=== PATIENT | male | born 1980 ===

== ENCOUNTER 2018-03-28 18:14 | Emergency (ER) | payer SELFPAY ==
[2018-03-28] MEDS ORDERED: Iohexol 240 (50 ml) PO STA (19:26)
--- NOTE | 2018-03-28 19:28 | C.PDOC ---
History Of Present Illness 37 year old male presents to the ED for evaluation of left inguinal bulging for the past 2 days. Patient reports he works in a [employer] 11 hours a day does not remember any straining or injury. Patient reports that when standing for long periods of time and lifting heavy objects he feels the bulge get larger and pain increases. Patient states now pain is radiating to his left flank and down his left leg. Patient states no change in bowel or urinary habits. Patient reports he had right inguinal hernia repair 20 years ago. Patient denies fever, chills, nausea, vomit, diarrhea, dysuria, hematuria, back pain, weakness, numbness. Time Seen by Provider: 03/28/18 19:18 Chief Complaint (Nursing): Groin Pain History Per: Patient History/Exam Limitations: no limitations Onset/Duration Of Symptoms: Days (2) Current Symptoms Are (Timing): Still Present Quality Of Discomfort: "Pain" Associated Symptoms: denies: Nausea, Vomiting, Diarrhea, Urinary Symptoms Recent travel outside of the [place]: No Additional History Per: Patient Past Medical History Reviewed: Historical Data, Nursing Documentation, Vital Signs Vital Signs: Last Vital Signs Temp 99 F 03/28/18 18:18 Pulse 96 H 03/28/18 18:18 Resp 16 03/28/18 18:18 BP 138/90 03/28/18 18:18 Pulse Ox 99 03/28/18 18:18 - Medical History PMH: No Chronic Diseases Surgical History: Hernia Repair (right inguinal 20 yeras ago ) Family History: States: Unknown Family Hx - Social History Hx Alcohol Use: Yes Hx Substance Use: No - Immunization History Hx Tetanus Toxoid Vaccination: No Hx Influenza Vaccination: No Hx Pneumococcal Vaccination: No Review Of Systems Constitutional: Negative for: Fever, Chills Cardiovascular: Negative for: Chest Pain, Palpitations Respiratory: Negative for: Shortness of Breath Gastrointestinal: Negative for: Nausea, Vomiting, Abdominal Pain Genitourinary: Positive for: Other (iguinal bulging). Negative for: Dysuria, Hematuria Skin: Negative for: Rash Neurological: Negative for: Weakness, Numbness Physical Exam - Physical Exam Appears: Non-toxic, No Acute Distress Skin: Normal Color, Warm, Dry Head: Atraumatic, Normacephalic Eye(s): bilateral: Normal Inspection Oral Mucosa: Moist Neck: Normal ROM, Supple Chest: Symmetrical Cardiovascular: Rhythm Regular Respiratory: Normal Breath Sounds, No Rales, No Rhonchi, No Wheezing Gastrointestinal/Abdominal: Soft, No Tenderness, No Guarding, No Rebound Back: No CVA Tenderness Male Genital: No Testicular Tenderness, No Testicular Swelling, Inguinal Tende rness (left non reducible hernia), No Scrotal Swelling Extremity: Normal ROM, No Tenderness, No Swelling Neurological/Psych: Oriented x3, Normal Speech, Normal Cognition Gait: Steady ED Course And Treatment - Laboratory Results Result Diagrams: 03/28/18 20:02 03/28/18 20:02 Lab Interpretation: Normal O2 Sat by Pulse Oximetry: 99 (ON RA) Pulse Ox Interpretation: Normal - CT Scan/US CT abd/pelvis Other Rad Studies (CT/US): Read By Radiologist, Radiology Report Reviewed CT/US Interpretation: Date of service: 03/28/2018. Procedure. CT Abdomen with intravenous contrast. History. Periumbilical pain. Comparison. None. Technique. Axial images of the abdomen from lung bases to iliac crest with intravenous contrast enhancement. Coronal and sagittal reformats generated. Oral contrast also administered. . Radiation dose: Total exam DLP = 644.51 mGy-cm. . Intravenous contrast Dose: Visipaque [address] exam was performed using one or more of the following dose reduction techniques: Automated exposure control, adjustment of the mA and/or kV according to patient size, and/or use of iterative reconstruction technique. Findings. Lower thorax. Unremarkable. Liver. Unremarkable. No gross lesion or ductal dilatation. Gallbladder and bile ducts. Unremarkable. Pancreas. Unremarkable. No gross lesion or ductal dilatation. Spleen. Unremarkable. Adrenals. Unremarkable. No mass. Kidneys and ureters. Unremarkable. No hydronephrosis. No solid mass. Vasculature. Unremarkable. No aortic aneurysm. Bowel. No obstruction. There is evidence of circumferential wall thickening with thumb printing involving the cecum, ascending colon, transverse colon and portion of the descending colon consistent with colitis. There is wall thickening noted involving duodenum compatible with duodenitis. Small fat-containing umbilical hernia is seen. Appendix. Normal appendix. Peritoneum. Unremarkable. No free fluid. No free air. Lymph nodes. Unremarkable. No enlarged lymph nodes. Bladder. Unremarkable. Reproductive. Prostate gland is unremarkable. There is a small fat-containing left inguinal hernia noted. Bones. No acute fracture. Other Findings. Small hiatal hernia is seen. Impression. Evidence of colitis and duodenitis. Small fat-containing umbilical hernia. Small fat-containing left inguinal hernia. Small hiatal hernia. . Electronically signed on Mar 28, 2018 10:57:38 PM EST by: Kevan Storm M.D., MBA Certified By ABR & CBC[employer]. Fellowship Trained MRI and CT Specialist Reevaluation Time: 23:06 Reassessment Condition: Unchanged Medical Decision Making Medical Decision Making: Plan: * CT abd/pelvis * Labs * UA Disposition Counseled Patient/Family Regarding: Studies Performed, Diagnosis, Need For Followup, Rx Given - Disposition Referrals: Edgar Callejas MD [Staff Provider] - Disposition: HOME/ ROUTINE Disposition Time: 23:24 Condition: STABLE Prescriptions: Naproxen [Naprosyn] 1 tab PO BID PRN #25 tab PRN Reason: Pain Instructions: Inguinal and Femoral (Groin) Hernias Forms: [employer] (Palestinian) Print Language: [place] - Clinical Impression Clinical Impression: Left groin hernia - Scribe Statement The provider has reviewed the documentation as recorded by the Scribe Pee Geiger All medical record entries made by the Scribe were at my direction and personally dictated by me. I have reviewed the chart and agree that the record accurately reflects my personal performance of the history, physical exam, medical decision making, and the department course for this patient. I have also personally directed, reviewed, and agree with the discharge instructions and disposition.
[2018-03-28] MEDS ORDERED: Iohexol 240 (50 ml) ONE (20:09)
[2018-03-28 20:11] LABS: EOS # 0.1 K/uL (0.0-0.7); EOS % 1.3 % (0.0-4.0); LYMPH # 2.6 K/uL (1.0-4.3); MONO # 0.6 K/uL (0.0-0.8); NEUT # 4.5 K/uL (1.8-7.0)
[2018-03-28 20:13] LABS: BASO % 0.5 % (0.0-2.0); HEMOGLOBIN 15.9 g/dL (12.0-18.0); LYMPH % 33.3 % (20.0-40.0); MEAN CELL VOLUME 86.5 fL (80.0-94.0); MEAN CORPUSCULAR HEMOGLOBIN 30.5 pg (27.0-31.0); MEAN CORPUSCULAR HGB CONC 35.3 g/dL (33.0-37.0); MONO % 7.6 % (0.0-10.0); NEUT % 57.3 % (50.0-75.0); RBC 5.21 Mil/uL (4.40-5.90); RED CELL DISTRIBUTION WIDTH 13.3 % (11.5-14.5); WHITE BLOOD COUNT 7.9 K/uL (4.8-10.8)
[2018-03-28 20:23] LABS: ALB/GLOB RATIO 1.3 (1.0-2.1); ALBUMIN 4.5 g/dL (3.5-5.0); ALT/SGPT 32 U/L (21-72); AST/SGOT 31 U/L (17-59); BLOOD UREA NITROGEN 14 mg/dL (9-20); CALCIUM 9.1 mg/dl (8.6-10.4); GFR NON-AFRICAN AMERICAN > 60
[2018-03-28] MEDS ORDERED: Bacitracin 500 Units/gm Oint Foilpak UD ONE (20:45)
[2018-03-28 21:03] LABS: URINE AMORPHOUS SEDIMENT RARE /ul (<OCC); URINE BACTERIA RARE (<OCC); URINE BILIRUBIN NEGATIVE (NEGATIVE); URINE BLOOD NEGATIVE (NEGATIVE); URINE CLARITY Hazy (Clear); URINE COLOR Yellow (YELLOW); URINE GLUCOSE (UA) NORMAL (Normal); URINE LEUKOCYTE ESTERASE NEG Leu/uL (Negative); URINE PROTEIN NEGATIVE (NEGATIVE)
[2018-03-28 22:43] VITALS: BP 124/89; PULSE 83; RESP 18; TEMP 98.4
[2018-03-28 23:10] VITALS: O2SAT 99
[2018-03-28] MEDS ORDERED: Naproxen 550 mg Tab PO STA (23:26)
[2018-03-28] MEDS ORDERED: Naproxen 550 mg Tab PO ONE (23:37)
--- NOTE | 2018-03-29 11:21 | CT ---
Date of service: 03/28/2018 PROCEDURE: CT Abdomen and Pelvis with contrast HISTORY: Abdominal pain COMPARISON: None available. TECHNIQUE: CT scan of the abdomen and pelvis was performed after administration of intravenous contrast. Oral contrast was administered. Coronal and sagittal reformatted images were obtained. Contrast dose: 100 mL Visipaque Radiation dose: Total exam DLP = 644.51 mGy-cm. This CT exam was performed using one or more of the following dose reduction techniques: Automated exposure control, adjustment of the mA and/or kV according to patient size, and/or use of iterative reconstruction technique. FINDINGS: LOWER THORAX: The visualized lungs are clear. LIVER: Mild hepatomegaly and fatty liver. Normal homogeneous enhancement. No gross lesion or ductal dilatation. GALLBLADDER AND BILE DUCTS: Well distended. No calcified gallstones, wall thickening or pericholecystic fluid. PANCREAS: Normal in size with homogeneous enhancement. No gross lesion or ductal dilatation. SPLEEN: Normal in size and appearance. ADRENALS: No discrete nodule. KIDNEYS AND URETERS: Normal in size with homogeneous enhancement. No hydronephrosis. No solid mass. VASCULATURE: No aortic aneurysm. BOWEL: There is mild circumferential mural thickening in the ascending and descending colon. There is mild prominence of fluid-filled 2nd portion of the duodenum. No bowel obstruction. APPENDIX: Normal appendix. PERITONEUM: No free fluid. No free air. LYMPH NODES: No enlarged lymph nodes. BLADDER: Well distended and normal in appearance. REPRODUCTIVE: The prostate gland is normal in size. BONES: No acute fracture. Within normal limits for the patient's age. OTHER FINDINGS: There is a large fat containing left inguinal hernia. There is a small sliding hiatal hernia. IMPRESSION: Findings are most compatible with nonspecific acute infectious/inflammatory colitis involving the ascending and descending colon. No bowel obstruction. A preliminary report was provided by [employer]..
== END 2018-03-28 23:40 | disposition home or self-care (01) ==
LOC: C.ER 18:14
DX: K40.90 Unilateral inguinal hernia, without obstruction or gangrene, not specified as recurrent (principal)
CPT/HCPCS: 74177; 80053; 81001; 85025; 99282; Q9966